=== PATIENT | female | born 1970 | race Caucasian/White ===

== ENCOUNTER → 2018-08-21 17:31 | Outpatient (CLI) | payer OTHER, SELFPAY ==
[2018-08-21 15:41] VITALS: BMI 32.1
[2018-08-28 16:28] LABS: HPV APTIMA, High Risk Negative (Negative)
--- OUTSIDE RECORDS SUMMARY | 2018-10-26 16:43 | XMS RPT_ITS ---
:1970 Author Organization OHIP Care Team Providers Name Role Phone SOPHIA NELSON MD Attending Unavailable SOPHIA NELSON MD Attending Unavailable Ashley Lund Attending Unavailable DOCTOR, OUT OF TOWN Referring Unavailable Ashley Lund Attending Unavailable ANA APULA HOOPER Primary Care Unavailable Ashley Lund Referring Unavailable Ashley Lund Attending Unavailable DOCTOR, OUT OF TOWN Referring Unavailable ANA PAULA HOOPER Primary Care Unavailable DOCTOR, OUT OF TOWN Attending Unavailable ANA PAULA HOOPER Primary Care Unavailable PROBLEMS PROBLEMS DATE TYPE CONDITION / CODE ATTENDING STATUS SOURCE 08/29/2018 Unknown Z12.4 - Encounter Ashley Lund Active [place] for screening for Community malignant neoplasm [facility] cervix / Repository Z12.4(ICD-10) 08/21/2018 Unknown Z01.419 - Encounter Ashley Lund Active [place] for gynecological [facility] (general) (routine) Repository without abnormal findings / Z01.419(ICD-10) 08/29/2017 Unknown Z12.31 - Encounter [place], Ashley Active [place] for screening Community mammogram for [facility] malignant neoplasm Repository of breast / Z12.31(ICD-10) PROCEDURES PROCEDURES No Procedure Records FoundRESULTS RESULTS YARDAGE CALLER OFFICE VISIT Observed: 08/21/2018 Status: F Source: JENNIFER REPORT 3:58 PM PENDING SALE TO [facility] REPOSITORY [facility] [address] [place] [address]. [address] [place] [address] OFFICE VISIT Date of Service: 08/21/18 MR#: [id number] Acct: [id number] Name: PAVEL BURTON Rep #: [id number] : 1970 Provider: NILE Lund Age/Sex: 48/F Location: [facility] Status: Signed Intake Vital Signs08/21/18 Height 5 ft 1 in 08/21/18 Weight: 170 lb 4 oz 08/21/18 Body Mass Index (BMI) 32.1 08/21/18 Blood Pressure 110/78 Intake Visit Reasons: SYSTEM CONSULTANT ANNUAL Geriatric Assistant Required: No Is patient in pain?: No Allergies No Known Allergies Allergy (Verified 08/21/18 15:42) Medications NK 08/13/17 [History Confirmed 08/21/18] Is last menstrual period known: Yes Last Menstral Period: 08/02/18 Post menopausal: No Patient : No : No PFSH Surgical History laser removal of wart (Inactive) Family History Grandmother Diabetes Sudden cardiac Grandfather Leukemia Social History Smoking Status: Never smoker alcohol intake: current alcohol intake frequency: 0-2 drinks per day Alcohol type: wine substance use type: does not use what type of physical activity do you participate in: none seatbelt use: always do you feel safe at home: Yes Pregancy History 3 Elective abortions Hx Para 3 Spontaneous abortions Past Pregnancies Del. DateName GA/Weeks Outcome Route Bth WeighInfant GeLabor LgtAnesthesiDel LocatProvider FOB t n h a n HPI SYSTEM CONSULTANT ANNUAL: Details: PAVEL BURTON is a 48 year old who presents for annual exam. Denies concerns Last PAP: 08/2017 ASCUS with negative HPV History of abnormal PAP: no treatment Last mammogram: at least 2 years ago History of abnormal mammogram:no No contraception Menses irregular every 2-3 months. Female Reproductive History Last Menstral Period: 08/02/18 ROS Const Constitutional: Denies fatigue, weight gain or weight loss Cardio Card: Denies chest pain Resp Resp: Denies cough or shortness of breath with activity GI GI: Denies abdominal pain, constipation, change in stools, vomiting or bloating : Reports as per HPI; denies urinary frequency, pelvic pain, urinary urgency, vaginal discharge, vaginal itching, urinary incontinence or difficulty urinating Exam Const General: cooperative, healthy appearing, no acute distress, well developed Orientation: alert, oriented to person, oriented to place HENMN Head: normal to inspection Neck Neck: normal visual inspection Thyroid: thyroid normal Lymphatic: no lymphadenopathy noted Chest Breast inspection: normal inspection of the breasts, normal inspection of the axillae Breast palpation: normal palpation of the breasts, normal palpation of the axillae, no axillary lymphadenopathy Resp Effort AND Inspection: normal respiratory effort GI Palpation: soft, nontender, no masses Rectal Exam: deferred External Female Exam: normal external appearance, normal appearance of the urethra Urethra: normal appearance of the urethra, normal palpation Speculum Exam - Vagina: normal appearance of the vagina, normal vaginal discharge Speculum Exam - Cervix: normal appearance of the cervix Bimanual Exam- Vagina AND Uterus: normal bimanual exam, uterine size normal, uterine shape normal, uterus non-tender Bimanual Exam- Adnexa, other: normal adnexae, no adnexal masses, adnexae non-tender, pelvic support normal Pelvic Support: normal Neuro General: alert, oriented x3 Psych Affect: normal affect Assessment AND Plan Problems 1. Encounter for gynecological examination without abnormal finding Z01.419 Plan Completed breast and pelvic exam Reviewed diet and exercise Pap thin prep pap with HPV Mammogram ordered RTO 1 year, prn with problems Ashley Lund TRUCK DESPATCHER Orders Orders: Coding Level of Care Code Off vis,est,prev 40-64yrs Diagnoses Encounter for gynecological examination without abnormal finding Z01.419 Gynecological examination findings: abnormal findings ABSENT 08/21/18 1558 <Electronically signed by Ashley Lund BELT GLASS SANDER-C> Date Ashley Gómeztings BELT GLASS SANDER-C Cosigner Signature: Date (if applicable) CC: PAP IG HPV APTIMA Collected: 08/21/2018 Status: F Source: JENNIFER 16/18,45 3:30 PM [facility] REPOSITORY Order Comment: CYTOLOGY INFORMATION: - CLINICAL INFORMATION: - DATE LMP/MENOPAUSE: - COLLECTION VIAL: Thin Prep Vial - SYSTEM CONSULTANT SOURCE: CERVICAL - COLLECTION TECHNIQUE: BRUSH/SPATULA Specimen Comment: [id number] Specimen Comment: Source.............Cervix Specimen Comment: No. of containers..01 ThinPrep Vial TYPE CODE TESTS RESULT OUT OF REFERENCE UNITS RANGE LAB L7400.0800 . High DIAGN Comment Result Comment: EPITHELIAL CELL ABNORMALITY. ATYPICAL SQUAMOUS CELLS OF UNDETERMINED SIGNIFICANCE (ASC-US). LAB L7400.0900 . Normal ADEQ Comment Result Comment: Satisfactory for evaluation. Endocervical and/or squamous metaplastic cells (endocervical component) are present. LAB L7400.1400 . Normal PERFORM Comment Result Comment: Ana Paula Angela, Consulting Manager (ASCP) LAB L7400.1700 . Normal SIGN Comment Result Comment: Fernando Calle MD (Charles), Pathologist LAB L7400.1720 . Normal Path prov. Comment ICD9 Result Comment: R87.610 LAB L7400.2575 . Normal TEST METHOD Comment Result Comment: This liquid based ThinPrep(R) pap test was screened with the use of an image guided system. LAB L7400.2600 . Normal . COMM LAB L7400.2700 . Normal PAPSMR Comment Result Comment: The Pap smear is a screening test designed to aid in the detection of premalignant and malignant conditions of the uterine cervix. It is not a diagnostic procedure and should not be used as the sole means of detecting cervical cancer. Both false-positive and false-negative reports do occur. LAB L7400.2760 Negative Normal HPV APTIMA, Negative HR Result Comment: This test detects fourteen high-risk HPV types (16/18/31/33/35/39/45/ 51/52/56/58/59/66/68) without differentiation. Performed at: [facility] - [facility] [id number] Reporting Coordinator: Kiley Zhou MD, Phone: [phone] Performed at: - [facility] [id number] Reporting Coordinator: Tomeka Fragoso MD, Phone: [phone] Performed at: - [facility], [place] [id number] Reporting Coordinator: Tomeka Fragoso MD, Phone: [phone] Performed By: #### L7400.0280 #### [facility] (refer to report for specific site) refer to report for address and phone number YARDAGE CALLER OFFICE VISIT Observed: 07/02/2018 Status: F Source: JENNIFER REPORT 2:15 PM [facility] [address] [place] [address] OFFICE VISIT Date of Service: 08/29/17 MR#: [id number] Acct: [id number] Name: PAVEL BURTON Rep #: [id number] : 1970 Provider: NILE Lund Age/Sex: 47/F Location: [facility] Status: Signed with Addenda ADDENDUM by NILE Lund on 07/02/18 at 1415 Addendum entered and electronically signed by STEFANO Luong 07/02/18 14:15: Rectal exam was deferred. No masses palpated Assessment AND Plan Problems 1. Encounter for gynecological examination without abnormal finding Z01.419 2. Encounter for screening mammogram for malignant neoplasm of breast Z12.31 3. Pap smear for cervical cancer screening Z12.4 Plan - STEFANO Luong Completed breast and pelvic exam Reviewed diet and exercise Pap collected Mammogram ordered RTO 1 year, prn with problems Ashley Lund TRUCK DESPATCHER Orders Orders: 07/02/18 1415 <Electronically signed by Ashley AGARWAL> Date Ashley Lund cc: * Signed Intake Vital Signs08/29/17 Height 5 ft 1 in 08/29/17 Weight: 170 lb 6 oz 08/29/17 Body Mass Index (BMI) 32.1 08/29/17 Blood Pressure 127/75 Intake Visit Reasons: Annual (SYSTEM CONSULTANT) Chief Complaint: annual Is patient in pain?: No Allergies No Known Allergies Allergy (Verified 08/13/17 15:35) Medications NK [NK] 08/13/17 [History Confirmed 08/13/17] Is last menstrual period known: Yes Last Menstral Period: 07/09/17 Post menopausal: No Patient : No : No Pregancy History 3 Elective abortions Hx Para 3 Spontaneous abortions Past Pregnancies Del. DateName GA/Weeks Outcome Route Bth WeighInfant GeLabor LgtAnesthesiDel LocatProvider FOB t n h a n PFSH Surgical History laser removal of wart (Inactive) Family History Grandmother Diabetes Sudden cardiac Grandfather Leukemia Social History Smoking Status: Never smoker alcohol intake: current alcohol intake frequency: 0-2 drinks per day Alcohol type: wine substance use type: does not use what type of physical activity do you participate in: none seatbelt use: always do you feel safe at home: Yes HPI Annual (SYSTEM CONSULTANT): Details: PAVEL BURTON is a 47 year old who presents for annual exam. Denies concerns. Menses rare, every 2-3 months. Last 5-7 days History of abnormal PAP: no Last mammogram: 2016 History of abnormal mammogram: no Female Reproductive History Last Menstral Period: 07/09/17 ROS Const Constitutional: Denies fatigue, weight gain or weight loss Cardio Card: Denies chest pain Resp Resp: Denies cough or shortness of breath with activity GI GI: Denies abdominal pain, constipation, change in stools, vomiting or bloating : Reports as per HPI; denies urinary frequency, pelvic pain, urinary urgency, vaginal discharge, vaginal itching, urinary incontinence or difficulty urinating Exam Const General: cooperative, healthy appearing, no acute distress, well developed Orientation: alert, oriented to person, oriented to place HENMN Head: normal to inspection Neck Neck: normal visual inspection Thyroid: thyroid normal Lymphatic: no lymphadenopathy noted Chest Breast inspection: normal inspection of the breasts, normal inspection of the axillae Breast palpation: normal palpation of the breasts, normal palpation of the axillae, no axillary lymphadenopathy Resp Effort AND Inspection: normal respiratory effort Auscultation: clear to auscultation bilaterally Cardio Rate: regular rate Rhythm: regular rhythm GI Palpation: soft, nontender, no masses Rectal Exam: mass, deferred External Female Exam: normal external appearance, normal appearance of the urethra Urethra: normal appearance of the urethra, normal palpation Speculum Exam - Vagina: normal appearance of the vagina, normal vaginal discharge Speculum Exam - Cervix: normal appearance of the cervix, other (pap collected) Bimanual Exam- Vagina AND Uterus: normal bimanual exam, uterine size normal, uterine shape normal, uterus non-tender Bimanual Exam- Adnexa, other: normal adnexae, no adnexal masses, adnexae non-tender, pelvic support normal Pelvic Support: normal Neuro General: alert, oriented x3 Psych Affect: normal affect Assessment AND Plan Problems 1. Encounter for gynecological examination without abnormal finding Z01.419 2. Encounter for screening mammogram for malignant neoplasm of breast Z12.31 3. Pap smear for cervical cancer screening Z12.4 Plan Completed breast and pelvic exam Reviewed diet and exercise Pap collected Mammogram ordered RTO 1 year, prn with problems Ashley Lund TRUCK DESPATCHER Orders Orders: Coding Level of Care Code Off vis,est,prev 40-64yrs Diagnoses Encounter for gynecological examination without abnormal finding Z01.419 Gynecological examination findings: abnormal findings ABSENT Encounter for screening mammogram for malignant neoplasm of breast Z12.31 Pap smear for cervical cancer screening Z12.4 08/29/17 1502 <Electronically signed by Ashley AGARWAL> Date Ashley AGARWAL Cosigner Signature: Date (if applicable) CC: ALLERGIES ALLERGIES DATE TYPE / CODE NAME / CODE REACTION SEVERITY SOURCE 08/21/2018 Drug No Known Unknown [facility] Allergy/4160 Allergies/F00 Hospital 59774(SNOMED [id number](RXNOR Repository CT) M) ENCOUNTERS ENCOUNTERS ADMIT/DISCHARGE ACCOUNT NUMBER ADMITTING ENCOUNTER LOCATION SOURCE CLASS 08/21/2018 [id number] Ambulatory [facility] ding:[facility] Repository 08/21/2018/08/21/19 [id number] Ambulatory BMSBuilding: [place] [facility] Repository 08/07/2018 [id number] Ambulatory BBuilding:OP [facility] Repository 08/07/2018 [id number] Ambulatory BBuilding:OS [facility] Repository 01/24/2018 [id number] Ambulatory [facility] ding:MASS Repository 08/29/2017/08/29/19 [id number] Ambulatory BMSBuilding: [place] [facility] Repository PAYERS PAYERS ENCOUNTER GUARANTOR PAYER SUBSCRIBER SOURCE 08/21/2018 PAVEL [id number] Primary PAVEL LINDERDOB: Jennifer MARCOS DAYERON Insurance[id number] [address]Alp: (330) Number: Repository [phone] () [id number] Date:[id number] [address] [place] [id number]: 08/21/2018 Secondary NOT GIVENUNK [place] Insurance:SELF PAY [facility] Number: Effective Repository Date:2018-08-21 08/21/2018 JOEY Primary PAVEL NEGRITAERDOB: [place] [id number] MARCOS Insurance:MEDICAL [id number] [address]Hbp: (330) Number: Repository [phone] () [id number] Date:[id number] [address], [place] [address]YI: 08/21/2018 Secondary NOT GIVENUNK Jennifer Insurance:SELF PAY [facility] Number: Effective Repository Date:2018-08-21 01/24/2018 JOEY Primary NOT GIVENUNK Jennifer [id number] PIMENTEL Insurance:SELF PAY [facility] [address]Yfg: (330) Number: Effective Repository [phone] () Date:2016-05-02 08/29/2017 [id number] Primary PAVEL JOSEPHINEB: Jennifer Pimentel [facility] Insurance:C[place]Policy [id number] Number: [facility] [address]Ucp: 330 [id number] Repository [phone] (HP) Date:[id number] [address] [address]FZ: 08/29/2017 Secondary NOT GIVENUNK [place] Insurance:SELF PAY [facility] Number: Effective Repository Date:2017-08-21
== END ==
PROVIDERS: Referring Provider Nurse Practitioner Women's Health; Visit Provider Nurse Practitioner Women's Health
DX: Z12.4 Encounter for screening for malignant neoplasm of cervix (principal)
CPT/HCPCS: 87624; 88175; G0145

== ENCOUNTER → 2018-09-30 16:10 | Outpatient (CLI) | payer OTHER, SELFPAY ==
[2018-08-21 15:41] VITALS: BMI 32.1
--- NOTE | 2018-09-30 16:31 | BI_ITS ---
MAMMOGRAPHY - BILATERAL SCREENING REASON FOR EXAM: Female, 48 years old. Routine annual screening examination. PERTINENT HISTORY: Non-contributory. TECHNIQUE: Digital bilateral breast raji (3D mammographic acquisition) in the CC and MLO projections. 2-D mediolateral oblique (MLO) and craniocaudad (CC) views of both breasts were obtained. CAD: Full Field Digital Mammography with Computer Added Detection was performed. COMPARISON: Comparison is made with prior outside examination dated July 19, 2015. FINDINGS: Breast Composition: The breasts are extremely dense, which lowers the sensitivity of mammography. There are no dominant masses or suspicious calcifications. No other significant abnormalities are identified. There has been no significant change since the prior study. BI/SCREEN MAMM (CAD) W/RAJI BILAT IMPRESSION: Stable bilateral screening mammogram. Yearly follow-up mammogram recommended. (A) ASSESSMENT CATEGORY: BIRADS Category 1: Negative. A letter regarding these results will be sent to the patient by the facility within 30 days. Approximately 10% of breast cancers are not detected by mammography. A normal mammogram should not delay biopsy of a clinically suspicious abnormality. [id number] Electronically Signed: Qasim Garza, at 8:44 EST , Service support ,
== END ==
PROVIDERS: Visit Provider Nurse Practitioner Women's Health
DX: Z12.31 Encounter for screening mammogram for malignant neoplasm of breast (principal)
CPT/HCPCS: 77063; 77067

== ENCOUNTER → 2019-05-02 08:13 | Outpatient (CLI) | payer OTHER, SELFPAY ==
[2018-08-21 15:41] VITALS: BMI 32.1
[2019-05-02 12:22] LABS: Absolute Lymphocyte Count 1.51 X10^3/uL (0.83-4.51); Absolute Neutrophil Count 3.9 X10^3/uL (2.0-7.7); Basophil# 0.04 X10^3/uL; Basophil% 0.7 % (0-1); Eosinophil# 0.08 X10^3/uL; Eosinophils% 1.3 % (0-5); Hematocrit 41.9 % (37-47); Hemoglobin 13.4 g/dL (12.0-15.0); Lymphocyte # 1.51 X10^3/ul (4.0); Mean Corpuscular Volume 93.9 fL (81-99); Mean Platelet Vol. 10.3 fl (6.2-12.0); Monocyte# 0.51 X10^3/uL; Monocyte% 8.4 % (0-10); NRBC Flagged by Analyzer 0 % (0-5); Neutrophil # 3.89 X10^3/uL (2.7-7.7); Neutrophil % 64.3 % (47-70); Platelet Count 295 K/mm3 (150-450); RBC Distribution Width CV 12.2 % (11.6-14.6); RBC Distribution Width SD 42.5 fl (35.1-43.9); Red Blood Count 4.46 M/mm3 (4.2-5.4); White Blood Count 6.1 K/mm3 (4.4-11.0)
[2019-05-02 13:06] LABS: ALB/GLOB Ratio 1.1 RATIO (0.9-2.4); AST(SGOT) 15 U/L (15-37); Alanine Aminotransfer ALT/SGPT 25 U/L (13-56); Albumin, Serum 3.8 g/dL (3.2-5.0); Alkaline Phosphatase 78 U/L (45-117); Anion Gap 7 (5-15); BUN 20 mg/dL (7-18); BUN/Creat Ratio 26.7 RATIO (10-20); Chloride 108 mmol/L (98-107); Cholesterol 244 mg/dL (200); Creatinine, Serum 0.75 mg/dL (0.55-1.02); EST Glomerular Filtration Rate 88 mL/min (>60); Est Glom Filt Rate - Afr Amer 106 mL/min (>60); Globulin 3.6 g/dL (2.2-4.2); Glucose 107 mg/dL (74-106); High Density Lipoprotein 66 mg/dL; Potassium 4.5 mmol/L (3.5-5.1); Protein, Total 7.4 g/dL (6.4-8.2); Sodium Level 142 mmol/L (136-145); Triglycerides 68 mg/dL; Very Low Density Lipoprotein 14 mg/dL (5-40)
== END ==
PROVIDERS: Family Provider Family Medicine; PCP Family Medicine; Visit Provider Family Medicine
DX: Z00.00 Encounter for general adult medical examination without abnormal findings (principal); N92.0 Excessive and frequent menstruation with regular cycle
CPT/HCPCS: 36415; 80053; 80061; 85025

== ENCOUNTER → 2022-03-24 | Outpatient (CLI) | payer BC, SELFPAY ==
--- NOTE | 2022-03-24 14:33 | BI_ITS ---
MAMMOGRAPHY - BILATERAL SCREENING REASON FOR EXAM: Female, 51 years old. Routine annual screening examination. PERTINENT HISTORY: Non-contributory. TECHNIQUE: Digital bilateral breast raji (3D mammographic acquisition) in the CC and MLO projections. 2-D mediolateral oblique (MLO) and craniocaudad (CC) views of both breasts were obtained. CAD: Full Field Digital Mammography with Computer Added Detection was performed. COMPARISON: Comparison is made with prior study dated 09/30/2018. FINDINGS: Breast Composition: The breasts are heterogeneously dense, which may obscure small masses. There are no dominant masses or suspicious calcifications. Stable small benign-appearing bilateral axillary lymph nodes. No other significant abnormalities are identified. There has been no significant change since the prior study. BI/SCRN MAMM (CAD)W/RAJI BILAT IMPRESSION: Stable bilateral screening mammogram. Yearly follow-up mammogram recommended. (A) ASSESSMENT CATEGORY: BIRADS Category 2: Benign. A letter regarding these results will be sent to the patient by the facility within 30 days. Approximately 10% of breast cancers are not detected by mammography. A normal mammogram should not delay biopsy of a clinically suspicious abnormality. [id number] Electronically Signed: Qasim Garza MD at 15:25 EDT ,
[2022-03-24 16:02] LABS: Vitamin D,25 Hydroxy 50.8 ng/mL
== END | disposition home or self-care (01) ==
PROVIDERS: PCP Family Medicine; Visit Provider Family Medicine
DX: Z12.31 Encounter for screening mammogram for malignant neoplasm of breast (principal); E55.9 Vitamin D deficiency, unspecified
CPT/HCPCS: 36415; 77063; 77067; 82306

== ENCOUNTER → 2023-05-28 | Outpatient (CLI) | payer BC, SELFPAY ==
[2023-05-28 12:17] LABS: Erythrocyte Sedimentation Rate 5 mm/hr (0-30)
[2023-05-28 12:24] LABS: Absolute Lymphocyte Count 1.69 X10^3/uL (0.83-4.51); Absolute Neutrophil Count 3.6 X10^3/uL (2.0-7.7); Basophil# 0.05 X10^3/uL; Basophil% 0.8 % (0-1); Eosinophil# 0.07 X10^3/uL; Eosinophils% 1.2 % (0-5); Hematocrit 41.5 % (37-47); Hemoglobin 13.5 g/dL (12.0-15.0); Lymphocyte # 1.69 X10^3/ul (0.83-4.51); Lymphocyte % 28.6 % (19-41); Mean Corp Hgb Conc 32.5 g/dL (32-36); Mean Corpuscular Volume 92.2 fL (81-99); Mean Platelet Vol. 10.4 fl (6.2-12.0); Monocyte# 0.49 X10^3/uL; Monocyte% 8.3 % (0-10); NRBC Flagged by Analyzer 0 % (0-5); Neutrophil # 3.58 X10^3/uL (2.7-7.7); Neutrophil % 60.8 % (47-70); Platelet Count 306 K/mm3 (150-450); RBC Distribution Width CV 12.4 % (11.6-14.6); RBC Distribution Width SD 42.1 fl (35.1-43.9); White Blood Count 5.9 K/mm3 (4.4-11.0)
[2023-05-28 12:52] LABS: AST(SGOT) 18 U/L (15-37); Alanine Aminotransfer ALT/SGPT 41 U/L (13-56); Albumin, Serum 3.8 g/dL (3.2-5.0); Alkaline Phosphatase 101 U/L (45-117); Anion Gap 4 (5-15); BUN 19 mg/dL (7-18); BUN/Creat Ratio 25.1 RATIO (10-20); CRP < 2.90 mg/L (0.0-3.0); Calcium,Total 9.4 mg/dL (8.5-10.1); Chloride 105 mmol/L (98-107); Creatinine, Serum 0.76 mg/dL (0.55-1.02); EST Glomerular Filtration Rate 85 mL/min (>60); Est Glom Filt Rate - Afr Amer 103 mL/min (>60); Globulin 3.9 g/dL (2.2-4.2); Glucose 100 mg/dL (74-106); Potassium 4.1 mmol/L (3.5-5.1); Protein, Total 7.7 g/dL (6.4-8.2); Sodium Level 137 mmol/L (136-145)
== END | disposition home or self-care (01) ==
LOC: BFHLAB 10:12
PROVIDERS: PCP Nurse Practitioner Family; Referring Provider Nurse Practitioner Family; Visit Provider Nurse Practitioner Family
DX: R19.7 Diarrhea, unspecified (principal)
CPT/HCPCS: 36415; 80053; 85025; 85652; 86140

== ENCOUNTER → 2023-05-29 | Outpatient (CLI) | payer BC, SELFPAY | END | disposition home or self-care (01) | LOC: LABSPEC 08:54 | PROVIDERS: PCP Nurse Practitioner Family; Referring Provider Nurse Practitioner Family; Visit Provider Nurse Practitioner Family | DX: R19.7 Diarrhea, unspecified (principal) | CPT/HCPCS: 83630; 87177; 87209; 87493; 87506 ==

== ENCOUNTER → 2024-04-22 | Outpatient (CLI) | payer BC, SELFPAY ==
[2024-04-22 13:04] LABS: Cholesterol 243 mg/dL (200); High Density Lipoprotein 64 mg/dL; Triglycerides 84 mg/dL; Very Low Density Lipoprotein 17 mg/dL (5-40)
[2024-04-22 14:29] LABS: Hemoglobin A1c 5.7 % (3.8-5.6)
== END | disposition home or self-care (01) ==
LOC: MTLAB 09:30
PROVIDERS: PCP Nurse Practitioner Family; Referring Provider Family Medicine; Visit Provider Family Medicine
DX: R73.01 Impaired fasting glucose (principal); E78.5 Hyperlipidemia, unspecified
CPT/HCPCS: 36415; 80061; 83036

== ENCOUNTER → 2025-03-04 | Outpatient (CLI) | payer BC, SELFPAY ==
[2025-03-06 16:09] LABS: Age Gdln ACOG Testing 30-65 (.); HPV APTIMA, High Risk Negative (Negative)
== END | disposition home or self-care (01) ==
PROVIDERS: PCP Nurse Practitioner Family; Visit Provider Family Medicine
DX: Z12.4 Encounter for screening for malignant neoplasm of cervix (principal)
CPT/HCPCS: 87624; 88175; G0145

== ENCOUNTER → 2025-04-08 | Outpatient (CLI) | payer BC, SELFPAY ==
--- NOTE | 2025-04-08 07:57 | BI_ITS ---
EXAM: SCRN MAMM (CAD)W/RAJI BILAT DATE: 04/08/2025 CLINICAL HISTORY: F, Age 54 y/o , SCREENING No family history. TECHNIQUE: Procedure Code: BISMWCADBTOM Modality: MG Procedure: SCRN MAMM (CAD)W/RAJI BILAT COMPARISON: Prior exam(s) dated March 24, 2022.. FINDINGS: TISSUE DENSITY: The breasts are heterogeneously dense, which may obscure small masses. Bilateral Breast Mammographic Findings: No significant masses, calcifications or other abnormalities are identified. No suspicious masses, areas of developing architectural distortion, or suspicious calcifications. There has been no significant interval change. BI/SCRN MAMM (CAD)W/RAJI BILAT IMPRESSION: Stable bilateral screening mammogram. OVERALL FINAL ASSESSMENT BI-RADS 1: NEGATIVE. RECOMMENDATION: Routine annual follow-up in 1 Year A letter with findings and recommendations will be mailed to the patient. Reading Location: [place] [address]
== END | disposition home or self-care (01) ==
LOC: OPBI 07:55
PROVIDERS: PCP Family Medicine; Referring Provider Family Medicine; Visit Provider Family Medicine
DX: Z12.31 Encounter for screening mammogram for malignant neoplasm of breast (principal)
CPT/HCPCS: 77063; 77067